=== PATIENT | female | born 1965 | race African-American/Black ===

== ENCOUNTER 2018-10-09 17:26 | Emergency (ER) | payer MEDICAID ==
[~2018-10-09] VITALS: Ht 167.6 cm; Wt 82.0 kg
[2018-10-09 18:13] VITALS: BP 121/83
== END 2018-10-09 20:29 | disposition left against medical advice (07) ==
LOC: ER 17:26
DX: Z53.21 Procedure and treatment not carried out due to patient leaving prior to being seen by health care provider (principal)

== ENCOUNTER 2020-10-12 09:27 | Emergency (ER) | payer MEDICAID ==
[~2020-10-12] VITALS: Ht 167.6 cm; Wt 68.0 kg
[2020-10-12 09:29] VITALS: BP 155/103
[2020-10-12] MEDS ORDERED: IBUPROFEN 600MG TABLET PO ONE (10:15)
[2020-10-12] MEDS ORDERED: ACETAMINOPHEN 325MG TABLET PO ONE (10:15)
[2020-10-12] MEDS ORDERED: ACET-2708 MT (10:34)
[2020-10-12] MEDS ORDERED: MUPI15CR11 TP (10:34)
[2020-10-12] MEDS ORDERED: IBUP-2028 MT (10:34)
[2020-10-12] MEDS ORDERED: BACITRACIN ZINC OINT UDPKT TOP ONE (10:45)
[2020-10-12] MEDS ORDERED: T3 PO (10:46)
[2020-10-12] MEDS ORDERED: CEPH500T MT (10:46)
[2020-10-12] MEDS ORDERED: TETANUS, DIPHTHERIA, PERTUSSIS VAC/PF 0.5ML (>7YR OLD) IM ONE (11:00)
== END 2020-10-12 11:12 | disposition home or self-care (01) ==
LOC: ER 09:27
DX: T22.142A Burn of first degree of left axilla, initial encounter (principal); T22.152A Burn of first degree of left shoulder, initial encounter; F17.210 Nicotine dependence, cigarettes, uncomplicated; I10 Essential (primary) hypertension; X10.2XXA Contact with fats and cooking oils, initial encounter; Y93.G1 Activity, food preparation and clean up; Y92.9 Unspecified place or not applicable; Z71.6 Tobacco abuse counseling
CPT/HCPCS: 81025; 90471; 90715; 99283; 99406

== ENCOUNTER 2023-04-27 11:11 | Emergency (ER) | payer MEDICAID ==
[~2023-04-27] VITALS: Ht 172.7 cm; Wt 740.0 kg
[~2023-04-27 11:11] MED LIST: ACET-2708 MT; CEPH500T MT; IBUP-2028 MT; MUPI15CR11 TP; T3 PO
[2023-04-27 11:18] VITALS: O2SAT 99
[2023-04-27] MEDS ORDERED: TRAM50TA3 MT (14:42)
[2023-04-27 15:00] VITALS: BP 114/68; PULSE 95; RESP 22; TEMP 98.3
== END 2023-04-27 15:20 | disposition home or self-care (01) ==
LOC: ER 11:32
DX: S22.43XA Multiple fractures of ribs, bilateral, initial encounter for closed fracture (principal); S09.90XA Unspecified injury of head, initial encounter; I10 Essential (primary) hypertension; Y04.0XXA Assault by unarmed brawl or fight, initial encounter; Y93.89 Activity, other specified; Y92.89 Other specified places as the place of occurrence of the external cause; Y99.8 Other external cause status
CPT/HCPCS: 71250; 99284

== ENCOUNTER 2023-08-18 14:54 | Emergency (ER) | payer MEDICAID ==
[~2023-08-18] VITALS: Ht 172.7 cm; Wt 64.0 kg
[~2023-08-18 14:54] MED LIST changes: +TRAM50TA3 MT
[2023-08-18 15:22] VITALS: O2SAT 100
[2023-08-18 17:11] LABS: BASOPHILS % 0.7 % (0.0-2.0); CHLORIDE 109 mEq/L (98-107); EOSINOPHILS % 2.9 % (0.0-5.0); HEMATOCRIT. 41.8 % (36.0-48.0); HEMOGLOBIN. 14.6 g/dL (12.0-16.0); MEAN CORPUSCULAR HEMOGLOBIN 31.4 pg (28.0-32.0); MEAN CORPUSCULAR HGB CONC 34.9 g/dL (31.0-37.0); MEAN CORPUSCULAR VOLUME 90.2 fL (81.0-99.0); MEAN PLATELET VOLUME 7.7 fl (7.4-10.4); MONOCYTES % 4.4 % (2.0-8.0); PLATELET 313 x1000/uL (130-400); POTASSIUM 4.3 mEq/L (3.5-5.1); RED BLOOD CELL COUNT 4.64 mill/uL (4.2-5.4); SODIUM 141 mEq/L (136-145); WHITE BLOOD COUNT 7.2 x1000/uL (4.5-11.0)
[2023-08-18 17:12] LABS: CALCIUM 9.3 mg/dL (8.7-10.4); CARBON DIOXIDE 26 mEq/L (21-32)
[2023-08-18 17:17] LABS: CREATININE 0.9 mg/dL (0.6-1.0); GLUCOSE 104 mg/dL (70-105); UREA NITROGEN BLOOD 15 mg/dL (9-23)
[2023-08-18 18:20] LABS: CLARITY URINE CLEAR (CLEAR); COLOR URINE YELLOW (YELLOW); GLUCOSE URINE NEGATIVE (NEGATIVE); KETONES URINE NEGATIVE (NEGATIVE); LEUKOCYTE ESTERASE URINE 1+ (NEGATIVE); NITRITE URINE NEGATIVE (NEGATIVE); OCCULT BLOOD URINE NEGATIVE (NEGATIVE); PH URINE 5.5 (4.5-8.0); PROTEIN URINE NEGATIVE (NEGATIVE); SPECIFIC GRAVITY URINE 1.021 (1.005-1.030); UROBILINOGEN URINE 0.2 E.U./dL (0.2-1.0)
[2023-08-18] MEDS ORDERED: METOCLOPRAMIDE HCL 10MG/2ML VIAL IV STA (18:37)
[2023-08-18] MEDS ORDERED: METOCLOPRAMIDE HCL 10MG/2ML VIAL IV NR (18:37)
[2023-08-18] MEDS ORDERED: KETOROLAC 30MG/ML VIAL IV NR (18:37)
[2023-08-18] MEDS ORDERED: ACETAMINOPHEN 325MG TABLET PO STA (18:37)
[2023-08-18] MEDS ORDERED: KETOROLAC 30MG/ML VIAL IV STA (18:37)
[2023-08-18] MEDS ORDERED: DIPHENHYDRAMINE 25MG CAPSULE PO ONE (18:45)
[2023-08-18 19:16] LABS: BACTERIA URINE 2+; RBC URINE 0-2 /hpf (0-2); SQUAMOUS EPITHELIAL CELL URINE FEW /lpf (RARE/1+)
[2023-08-18 20:54] LABS: BASOPHILS % 0.6 % (0.0-2.0); EOSINOPHILS % 2.9 % (0.0-5.0); HEMATOCRIT. 42.1 % (36.0-48.0); HEMOGLOBIN. 14.3 g/dL (12.0-16.0); LYMPHOCYTES % 37.3 % (20.0-50.0); MEAN CORPUSCULAR HEMOGLOBIN 30.5 pg (28.0-32.0); MEAN CORPUSCULAR HGB CONC 34.1 g/dL (31.0-37.0); MEAN CORPUSCULAR VOLUME 89.7 fL (81.0-99.0); MEAN PLATELET VOLUME 7.8 fl (7.4-10.4); MONOCYTES % 5.8 % (2.0-8.0); NEUTROPHILS % 53.4 % (40.0-76.0); PLATELET 314 x1000/uL (130-400); RED BLOOD CELL COUNT 4.69 mill/uL (4.2-5.4); WHITE BLOOD COUNT 6.6 x1000/uL (4.5-11.0)
[2023-08-18 20:58] LABS: CHLORIDE 108 mEq/L (98-107); SODIUM 141 mEq/L (136-145)
[2023-08-18 20:59] LABS: CALCIUM 9.5 mg/dL (8.7-10.4); CARBON DIOXIDE 28 mEq/L (21-32)
[2023-08-18 21:03] LABS: INR 0.9; PROTHROMBIN TIME 10.4 sec (9.6-11.0)
[2023-08-18 21:04] LABS: CREATININE 0.9 mg/dL (0.6-1.0); GLUCOSE 72 mg/dL (70-105); UREA NITROGEN BLOOD 17 mg/dL (9-23)
[2023-08-18 21:05] LABS: ALANINE AMINOTRANSFERASE 31 IU/L (10-49)
[2023-08-18 21:06] LABS: ALBUMIN 4.7 g/dL (3.2-4.8); ASPARTATE AMINOTRANSFERASE 19 IU/L (<34); BILIRUBIN TOTAL 0.2 mg/dL (0.1-1.0); PROTEIN TOTAL 7.8 g/dL (6.0-8.3)
[2023-08-18 21:14] VITALS: TEMP 98.4
[2023-08-18] MEDS: DIPHENHYDRAMINE 25MG CAPSULE PO NR (21:21)
[2023-08-18] MEDS: ACETAMINOPHEN 325MG TABLET PO NR (21:21)
[2023-08-18 21:22] VITALS: BP 124/76; PULSE 74; RESP 18
[2023-08-18] MEDS: KETOROLAC 60MG/2ML VIAL IM ONE (21:22)
[2023-08-18] MEDS: METOCLOPRAMIDE HCL 10MG TABLET PO ONE (21:26)
== END 2023-08-18 21:39 | disposition home or self-care (01) ==
LOC: ER 14:54
DX: R10.9 Unspecified abdominal pain (principal); K42.9 Umbilical hernia without obstruction or gangrene; R51.9 Headache, unspecified; I10 Essential (primary) hypertension; Z79.899 Other long term (current) drug therapy
CPT/HCPCS: 80053; 80048; 81003; 83690; 85025; 85610; 36415; 74176; 96372; 99285; Q0163; J8597; J1885; Z7610

== ENCOUNTER 2023-10-26 21:16 | Emergency (ER) | payer MEDICAID ==
[~2023-10-26] VITALS: Ht 167.6 cm; Wt 69.0 kg
[2023-10-26 21:36] VITALS: BP 179/109; PULSE 83; RESP 18; TEMP 97.8; O2SAT 99
[2023-10-26 22:35] LABS: BASOPHILS % 0.9 % (0.0-2.0); EOSINOPHILS % 3.5 % (0.0-5.0); HEMATOCRIT. 39.5 % (36.0-48.0); HEMOGLOBIN. 13.2 g/dL (12.0-16.0); LYMPHOCYTES % 41.9 % (20.0-50.0); MEAN CORPUSCULAR HEMOGLOBIN 29.5 pg (28.0-32.0); MEAN CORPUSCULAR HGB CONC 33.4 g/dL (31.0-37.0); MEAN CORPUSCULAR VOLUME 88.1 fL (81.0-99.0); MEAN PLATELET VOLUME 7.6 fl (7.4-10.4); MONOCYTES % 5.8 % (2.0-8.0); NEUTROPHILS % 47.9 % (40.0-76.0); PLATELET 324 x1000/uL (130-400); RED BLOOD CELL COUNT 4.48 mill/uL (4.2-5.4); RED CELL DISTRIBUTION WIDTH 15.3 % (11.6-14.6); WHITE BLOOD COUNT 6.7 x1000/uL (4.5-11.0)
[2023-10-26 22:39] LABS: CARBON DIOXIDE 26 mEq/L (21-32); CHLORIDE 111 mEq/L (98-107); SODIUM 141 mEq/L (136-145)
[2023-10-26 22:40] LABS: CALCIUM 9.4 mg/dL (8.7-10.4)
[2023-10-26 22:45] LABS: CREATININE 0.9 mg/dL (0.6-1.0); GLUCOSE 84 mg/dL (70-105); UREA NITROGEN BLOOD 10 mg/dL (9-23)
[2023-10-26 22:47] LABS: ALANINE AMINOTRANSFERASE 14 IU/L (10-49); ALBUMIN 4.4 g/dL (3.2-4.8); ASPARTATE AMINOTRANSFERASE 15 IU/L (<34); BILIRUBIN TOTAL 0.2 mg/dL (0.1-1.0)
[2023-10-26 22:48] LABS: PROTEIN TOTAL 7.2 g/dL (6.0-8.3)
[2023-10-26 22:50] LABS: BILIRUBIN DIRECT < 0.1 mg/dL (<=3.0)
[2023-10-27] MEDS ORDERED: IBUP-2028 MT (00:26)
== END 2023-10-27 01:00 | disposition home or self-care (01) ==
LOC: ER 21:16
DX: K44.9 Diaphragmatic hernia without obstruction or gangrene (principal); I10 Essential (primary) hypertension; Z79.899 Other long term (current) drug therapy
CPT/HCPCS: 36415; 76700; 80048; 80076; 85025; 99284

== ENCOUNTER 2024-02-25 11:26 | Emergency (ER) | payer MEDICAID ==
[~2024-02-25] VITALS: Ht 167.6 cm; Wt 69.0 kg
[2024-02-25 11:32] VITALS: O2SAT 96
[2024-02-25 11:45] VITALS: BP 178/112; PULSE 90; RESP 26; TEMP 98.7; O2SAT 99
== END 2024-02-25 16:47 | disposition left against medical advice (07) ==
LOC: ER 11:38
DX: R10.2 Pelvic and perineal pain (principal); Z53.21 Procedure and treatment not carried out due to patient leaving prior to being seen by health care provider